=== PATIENT | female | born 1975 | race Caucasian/White ===

== ENCOUNTER 2017-09-05 15:59 | Emergency (ER) | payer MEDICAID | END 2017-09-05 20:12 | disposition home or self-care (01) | LOC: FTE 15:59 | DX: B02.9 Zoster without complications (principal) | CPT/HCPCS: 99283; Z7502 ==

== ENCOUNTER 2019-01-03 08:39 | Emergency (ER) | payer SELFPAY, MEDICAID | END 2019-01-03 13:02 | disposition home or self-care (01) | LOC: FTE 08:39 | DX: H61.23 Impacted cerumen, bilateral (principal); E11.9 Type 2 diabetes mellitus without complications | CPT/HCPCS: 69210; 99283-25 ==